=== PATIENT | female | born 1990 | race Hispanic/Latino ===

== ENCOUNTER → 2016-11-23 | Outpatient (CLI) | payer BC | END | disposition home or self-care (01) | LOC: YCFC.O 09:48 | PROVIDERS: ATTEND Nurse Practitioner Family | DX: R50.9 Fever, unspecified (principal) ==

== ENCOUNTER → 2017-03-01 | Outpatient (CLI) | payer BC | LOC: YCFC.O 07:58 | PROVIDERS: ATTEND Nurse Practitioner Family | DX: Z00.00 Encounter for general adult medical examination without abnormal findings (principal); Z13.220 Encounter for screening for lipoid disorders; E66.3 Overweight; R73.01 Impaired fasting glucose ==